=== PATIENT | female | born 1985 | race Caucasian/White ===

== ENCOUNTER 2021-04-08 09:11 | Outpatient (CLI) | payer OTHER, SELFPAY ==
--- NOTE | ~2021-04-08 | XR_ITS ---
EXAMINATION: XR chest 2V EXAM DATE: 04/08/2021 09:29 INDICATION: R05.9 - Cough, unspecified, productive TECHNIQUE: Frontal and lateral projections of the chest obtained and reviewed. Comparison is made to prior examination from 04/18/2013. FINDINGS: The lungs are clear. There are no pleural effusions. The cardiomediastinal silhouette is within normal limits. There is no pneumothorax suspected. The bones and soft tissues are unremarkab le. There is no significant interval change. IMPRESSION: No acute cardiopulmonary findings. Reviewed, dictated and finalized at location B. ETIC RESONANCE IMAGING COORDINATOR
== END 2021-04-08 09:12 | disposition home or self-care (01) ==
LOC: ANHIMG 09:14
PROVIDERS: PCP Family Medicine; Visit Provider Family Medicine
DX: R05.9 Cough, unspecified (principal)
CPT/HCPCS: 71046

== ENCOUNTER → 2022-04-27 10:41 | Outpatient (CLI) | payer OTHER, SELFPAY ==
--- NOTE | ~2022-04-27 | CT_ITS ---
EXAMINATION: CT brain wo con DATE: 04/27/2022 10:54 INDICATION: Skull anomaly. Left forehead lump. TECHNIQUE: Computed tomography (CT) of the head was performed without intravenous contrast. The mA wa s adjusted according to patient size. Iterative reconstruction technique was employed. The dose-lengt h product was 599.57 mGy-cm. COMPARISON: Head CT 08/17/2008 FINDINGS: There is no intracranial hemorrhage, acute infarction, or abnormal intracranial mass lesion . The ventricles are normal in size. The orbits are normal. There is mild mucosal thickening in the p aranasal sinuses. There is focal cortical thickening of the outer table of the frontal bone on the le ft, consistent with an osteoma. The mastoid air cells are normal. IMPRESSION: 1. 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 Reviewed, dictated and finalized at location A. OTIONS OFFICER IMPRESSION: 1. Focal cortical thickening of the left frontal skull, consistent with an oste balbina.
== END ==
PROVIDERS: PCP Family Medicine; Visit Provider Internal Medicine
DX: Q75.9 Congenital malformation of skull and face bones, unspecified (principal)
CPT/HCPCS: 70450

== ENCOUNTER 2023-08-11 19:58 | Emergency (ER) | payer BC, SELFPAY ==
--- NOTE | ~2023-08-11 | CT_ITS ---
EXAMINATION: CT brain wo con DATE: 08/12/2023 00:23 INDICATION: Migraine headache TECHNIQUE: Computed tomography (CT) of the head was performed without intravenous contrast. Sagittal and coronal reconstructions were performed. The mA was adjusted according to patient size. Iterative reconstruction technique was employed. The dose-length product was 605.33 mGy-cm. COMPARISON: head CT dated 04/27/2022 FINDINGS: No acute intracranial hemorrhage, acute infarction or abnormal extra axial fluid collection. Ventricl es are normal and symmetric. No mass/mass effect. The orbits, paranasal sinuses and mastoid air cells are normal. 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 Normal brain. Reviewed, dictated and finalized at location A. IMPRESSION: 1. Normal brain.
[2023-08-11 20:45] VITALS: BP 123/96; PULSE 94; RESP 16; TEMP 36.5; O2SAT 100
--- NOTE | 2023-08-12 00:41 | ED.HA ---
HPI - Headache General Chief Complaint: Headache Stated Complaint: migraine since 0600 Time Seen by Provider: 08/11/23 23:57 Source: patient Mode of arrival: ambulatory Limitations: no limitations History of Present Illness HPI Narrative: This is a 38-year-old female that presents to the emergency department for migraine headache. Reports history of chronic migraines. She sees a neurologist with [facility] for this. Reports her headache today was worse than usual which prompted her to be seen. She took her sumatriptan with little relief. Reports associated photophobia, nausea and vomiting. Reports a sharp pain to the right frontal region. Denies focal numbness or weakness. Related Data Home Medications Medication Instructions Recorded Confirmed amitriptyline 25 mg tablet 25 mg PO QHS 09/07/22 09/07/22 propranolol 160 mg capsule,24 160 mg PO DAILY 09/07/22 09/07/22 hr,extended release cyclobenzaprine 10 mg tablet 10 mg PO TID 10/11/22 Allergies Allergy/AdvReac Type Severity Reaction Status Date / Time Penicillins Allergy Mild Rash Verified 08/11/23 20:01 amoxicillin Allergy Unknown Rash Verified 08/11/23 20:01 erythromycin base Allergy Unknown Nausea and Verified 08/11/23 20:01 Vomiting Review of Systems Review of Systems: CONSTITUTIONAL: Denies fever EYES: Denies visual changes GASTROINTESTINAL: Reports nausea, vomiting NEUROLOGIC: Reports headache. Denies numbness, or weakness. All systems reviewed & are unremarkable except as noted in HPI and below PMFSH Past Medical History Medical History (Updated 08/12/23 @ 02:08 by Melinda Matos PA-C) Benign neoplasm of skull (~03/2022) Encounter for insertion of intrauterine contraceptive device (IUD) for non-contraception indication Encounter for screening examination for sexually transmitted disease Migraines Surgical History Surgical History H/O lateral meniscus repair of right knee History of gynecological procedure (10/17/21) junito iud insertion History of laparoscopy 12/12/12 hysteroscopy/dx lscope/chromopertubation/ablation endometriosis S/P ACL repair S/P left rotator cuff repair Family History Family History Mother Patient's mother is in good health Breast cancer Father Patient's father is in good health Grandparent Acute myocardial infarction Breast cancer paternal grandmother Social History Social History (Updated 10/11/22 @ 10:07 by Kati Lombardi [facility]) Social History: Smoking status: Never smoker Second hand tobacco smoke exposure: No Alcohol intake: current Alcohol use details: occasionally 1 x month Substance use: never Substance use type: does not use Lack of Transportation: No Lack of Food: Never True Current Housing: I Have Housing Concerned About Future Housing: No Difficulty Paying Gas/Electric Bills: No Difficulty Paying for Meds: No Currently Unemployed: No Education: Master's Degree or Higher Difficulty w/ Childcare or Family Care: No Living arrangements: other Additional living arrangements comments: Occupation/Education: occupation 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 HEAD: Normocephalic, atraumatic. EYES: PERRLA and EOMI. ENT: Nares clear, no rhinorrhea or epistaxis. Mucous membranes moist. Oropharynx without tonsillar hypertrophy exudate or other lesions. Bilateral TMs pearly trujillo non-bulging NECK: Supple. No adenopathy or masses. Normal ROM CHEST: Clear to auscultation. No respiratory distress. No wheezes rales or rhonchi HEART: Regular rate and rhythm. No murmur heard. Normal peripheral pulses.
[2023-08-12] MEDS: SODIUM CHLORIDE 0.9% IV 1,000 ML 999 ML IV CONT (00:42)
[2023-08-12] MEDS: diphenhydrAMINE HCl INJ 50 MG/ML VIAL 25 MG IV PUSH (00:43)
[2023-08-12] MEDS: KETOROLAC 15 MG/ML VIAL (*BKC) IV PUSH (00:46)
[2023-08-12] MEDS: METOCLOPRAMIDE HCL INJ 10 MG/2 ML VIAL IV PUSH (00:47)
[2023-08-12] MEDS: ACETAMINOPHEN 500 MG TABLET 1000 MG PO (00:51)
[2023-08-12 02:18] VITALS: BP 104/68; PULSE 61; RESP 18; O2SAT 99
== END 2023-08-12 02:18 | disposition home or self-care (01) ==
PROVIDERS: Emergency Provider Physician Assistant; PCP Family Medicine
DX: G43.909 Migraine, unspecified, not intractable, without status migrainosus (principal)
CPT/HCPCS: 70450; 96361; 96374; 96375; 99284; A9270; J1200; J1885; J2765; J7030

== ENCOUNTER 2024-06-11 11:19 | Outpatient (CLI) | payer BC, SELFPAY ==
--- NOTE | ~2024-06-11 | XR_ITS ---
Clinical Indication: Dyspnea PA and lateral views of the chest: Comparison: 04/08/2021 Findings: The lungs are clear, without evidence of focal consolidation or pleural effusion. Cardiome diastinal silhouette is within normal limits. Bones and soft tissues are unremarkable. Impression: Normal chest. Reviewed, dictated and finalized at location . Impression: Normal chest.
== END 2024-06-11 11:20 | disposition home or self-care (01) ==
LOC: MICIMG 11:21
PROVIDERS: PCP Family Medicine; Visit Provider Physician Assistant
DX: R06.00 Dyspnea, unspecified (principal)
CPT/HCPCS: 71046

== ENCOUNTER 2024-09-05 07:28 | Outpatient (CLI) | payer BC, SELFPAY ==
--- OUTSIDE RECORDS SUMMARY | 2024-09-05 07:31 | XMS_ITS | Encounter Summary ---
Author Organization [facility] Address [facility] [place] [address] Care Team Providers Care Licensed Weigher Name Role Phone Ramya Sims MD Primary Care Provider [phone] Ana Marques MD Unavailable [phone] Encounter Details Date Type Department Care Team ([facility] Contact Info) Description 08/13/2023 MyChart Message Enc [address], [address] [place] [address] Ana Marques MD [address] [place] [address] [phone] Migraine ER Visit Follow Up Social History Tobacco Use Types Packs/Day Years Used Date Smoking Tobacco: Never Passive Smoke Exposure: Never Smokeless Tobacco: Never Alcohol Use Standard Drinks/Week Comments Not Currently 0 (1 standard drink = 0.6 oz pur e alcohol) Comments No Sex and Gender Information Value Date Recorded Sex Assigned at Not on file Legal Sex Female 10:01 AM CDT Gender Identity Not on file Sexual Orientation Not on file documented as of this encounter Plan of Treatment Upcoming Encounters Date Type Department Care Team (Late Contact Info) Description 10/20/2024 8:00 AM CDT Office Visit [address], [address] [place] [address] Ana Marques MD [address] [place] [address] documented as of this encounter Visit Diagnoses Not on filedocumented in this encounter Additional Health Concerns Infection Onset Date Last Indicated Resolved Time Respiratory Rule Out 05/22/2024 05/22/2024 025 10:28 AM CDT Influenza - Seasonal 05/22/2024 05/22/2024 025 12:32 AM CDT documented as of this encounter Care Teams Licensed Weigher Relationship Specialty Start Date End Date Ramya Sims MD [address] [facility] [address] [place] [address] PCP - General FAMILY PRACTICE 11/16/20 Ana Marques MD [address] [place] [address] Consulting Physician NEUROLOGY 05/22/24 documented as of this encounter
--- OUTSIDE RECORDS SUMMARY | 2024-09-05 07:31 | XMS_ITS | Clinical Summary ---
Author Organization [facility] Address [facility] [place] [address] Care Team Providers Care Staff Air Tactical Officer Name Role Phone Ramya Sims MD Primary Care Provider [phone] Ana Marques MD Unavailable [phone] Allergies Active Allergy Reactions Criticality Noted Date Comments Amoxicillin Unknown 11/16/2020 Erythromycin Unknown 11/16/2020 Penicillins Unknown 11/16/2020 Medications methylPREDNISol one, TANYA, (MEDROL DOSEPAK) 4 MG tablet Take 1 tablet (4 mg total) by mouth 2 (two) times daily. 01/28/20 24 Active SUMAtriptan (IMITREX) 100 MG tabletIndicatio ns:Chronic migraine w/o aura w/o status migrainosus, not intractable Take 1 tablet (100 mg total) by mouth 2 (two) times daily as needed. 12 tablet 11 04/22/19 25 Active escitalopram (LEXAPRO) 5 MG tablet 5 mg orally daily 06/20/19 25 Active propranolol LA (INDERAL LA) 120 MG 24 hr capsuleIndicati ons:Chronic migraine w/o aura w/o status migrainosus, not intractable Take 1 capsule (120 mg total) by mouth nightly. 90 capsule 3 07/05/19 25 026 Active hydrOXYzine (ATARAX) 25 MG tablet Take 1 tablet (25 mg total) by mouth 3 (three) times daily as needed. FOR ANXIETY 08/02/19 25 Active propranolol LA (INDERAL LA) 160 MG 24 hr capsuleIndicati ons:Migraine without aura, not intractable, without status migrainosus Take 1 capsule (160 mg total) by mouth daily. 30 capsule 11 08/20/19 25 Active zonisamide (ZONEGRAN) 25 MG capsuleIndicati ons:Migraine without aura, not intractable, without status migrainosus Take 1 capsule (25 mg total) by mouth daily for 14 days, THEN 2 capsules (50 mg total) daily for 16 days. 46 capsule 08/20/19 25 025 Active acetaZOLAMIDE (DIAMOX) 250 MG tabletIndicatio ns:Chronic migraine w/o aura w/o status migrainosus, not intractable Take 2 tablets (500 mg total) by mouth 2 (two) times daily. 360 tablet 3 04/22/19 25 025 Discontinued Active Problems Problem Noted Date Diagnosed Date Chronic migraine without aura 01/03/2023 Coracoid impingement 02/12/2014 Arthralgia of shoulder 09/29/2013 Endometriosis of pelvic peritoneum 09/04/2013 Encounters Date Type Department Care Team Description 08/19/2024 1:00 PM CDT Office Visit [facility] - [address], [address] [place] [phone] Ana Marques MD Follow Up 08/19/2024 Travel 07/04/2024 8:20 AM CDT Office Visit [facility] - [address], [address] [place] [phone] Ana Marques MD Follow Up 07/04/2024 Travel 07/02/[address], [address] [place] [phone] Ana Marques MD Concerns from Last 3 Months Family History Medical History Relation Comments myocardial infarction Maternal Grandfather Cancer Mother Breast Cancer Relation Status Comments Maternal Grandfather Mother Social History Tobacco Use Types Packs/Day Years Used Date Smoking Tobacco: Never Passive Smoke Exposure: Never Smokeless Tobacco: Never Tobacco Cessation:Counseling Given: Yes Alcohol Use Standard Drinks/Week Comments Not Currently 0 (1 standard drink = 0.6 oz pur e alcohol) PHQ-2 Answer Date Recorded Patient Health Questionnaire-2 Score 0 08/19/2024 Comments No Sex and Gender Information Value Date Recorded Sex Assigned at Not on file Legal Sex Female 10:01 AM CDT Gender Identity Not on file Sexual Orientation Not on file Last Filed Vital Signs Vital Sign Reading Time Taken Comments Blood Pressure 134/84 08/19/2024 1:03 PM CDT Pulse 67 08/19/2024 1:03 PM CDT Temperature 36.9 C (98.4 F) 05/22/2024 1:58 PM CDT Respiratory Rate 16 05/22/2024 1:58 PM CDT Oxygen Saturation 98% 08/19/2024 1:03 PM CDT Inhaled Oxygen Concentration - - Weight 90.3 kg (199 lb) 08/19/2024 1:03 PM CDT Height 170.2 cm (5' 7) 05/22/2024 9:20 AM CDT Body Mass Index 31.17 05/22/2024 9:20 AM CDT Plan of Treatment Upcoming Encounters Date Type Department Care Team (Late st Contact Info) Description 10/20/2024 8:00 AM CDT Office Visit [facility] - [address], [address] [place] [address] Ana Marques MD [address] [place] [id number] Health Maintenance Due Date Last Done Comments Cervical Cancer Screening Pap Smear (Age 30 to 64) Every 3 Years 1985 Annual Physical 01/15/1988 Hepatitis C 2003 Cervical Cancer Screening Pap with HPV Testing (Age 30 to 64) Every 5 Years 2015 Cervical Cancer Screening with HPV 2015 COVID-19 Vaccine ( season) 2023 08/02/2020, 07/12/2020 DTaP, Tdap and Td Vaccines (8 - Td or Tdap) 06/21/2027 06/20/2017, 11/24/2015, 07/01/1999, Additional history exists Hepatitis B Vaccines Completed 11/15/2001, 06/11/2001, 05/01/2001 Meningococcal Vaccine Aged Out 08/24/2003 No karen stevo eligible based on patient's age to complete this topic HPV Vaccines Completed 05/20/2007, 12/27, 09/24/2006 PHQ-2 (Physician [place]) Completed 08/19/2024 Meningococcal B Vaccine Aged Out No l onger eligible based on patient's age to complete this topic Pneumococcal Vaccine: Pediatrics (0 to 5 Years) and At-Risk Patients (6 to 49 Years) Aged Out No longer eligible based on patient's age to complete this topic RSV Immunizations Under 20 Months Aged Out No longer eligible based on patient's age to complete this topic Insurance [facility] Care Teams Staff Air Tactical Officer Relationship Specialty Start Date End Date Ramya Sims MD [address] [facility] [address] [place] [address] PCP - General FAMILY PRACTICE 11/16/20 Ana Marques MD [address] [place] [address] Consulting Physician NEUROLOGY 05/22/24
--- NOTE | 2024-09-05 08:02 | ECHO_ITS ---
Patient Info Name: Ovidio Marie Age: 39 years : 1985 Gender: Female Ht: 67 in Wt: 195 lbs BSA: 2.07 m2 HR: 62 bpm BP: 129 / 92 mmHg Technical Quality: Excellent Exam Date: 09/05/2024 8:15 AM Patient Status: O Admit Date: 09/05/2024 Exam Type: CA echo doppler color flow Complete two-dimensional, color flow and Doppler transthoracic echocardiogram is performed. Automotive Design Layout Drafter: Kelsey Whittington Attending Provider: Raul Joaquin DO Summary 1. Complete two-dimensional, color flow and Doppler transthoracic echocardiogram is performed. 2. Left ventricular chamber dimension is normal. 3. Left ventricular systolic function is normal, estimated at 65-70. 4. The left ventricular diastolic function is grade I diastolic dysfunction. 5. E/e' 7 is not elevated. 6. There is mild mitral valve regurgitation. 7. There is mild tricuspid valve regurgitation. 8. No pulmonary hypertension, estimated pulmonary arterial systolic pressure is 30 mmHg. Left Ventricle E/e' 7 is not elevated. Left ventricular chamber dimension is normal. Left ventricular systolic function is normal, estimated at 65-70. The left ventricular diastolic function is grade I diastolic dysfunction. Right Ventricle Right ventricular chamber dimension is normal. Right ventricular systolic function is normal and with normal TAPSE 2.0 cm. Left Atria Left atrial chamber dimension is normal. Right Atria Right atrial chamber dimension is normal. Aortic Valve The aortic valve is trileaflet. There is no aortic valve stenosis. There is no aortic valve regurgitation. Pulmonic Valve There is no pulmonic regurgitation. Mitral Valve There is no mitral valve stenosis. There is mild mitral valve regurgitation. Tricuspid Valve There is mild tricuspid valve regurgitation. No pulmonary hypertension, estimated pulmonary arterial systolic pressure is 30 mmHg. Pericardium/Pleural There is no pericardial effusion. Inferior Vena Cava Normal inferior vena cava with >50% collapse upon inspiration consistent with normal right atrial pressure, 5 mmHg. Aorta The aortic root size at the sinus of Valsalva is normal. Left Ventricular Outflow Tract Name Value Normal LVOT 2D LVOT Diameter 1.8 cm LVOT Doppler LVOT Peak Velocity 125 cm/s LVOT Peak Gradient 6 mmHg LVOT Mean Gradient 3 mmHg LVOT VTI 30 cm LVOT Stroke Volume 79 ml LVOT CO 4.9 l/min LVOT CI 2.4 l/min/m2 Pulmonic Valve Name Value Normal RVOT Doppler RVOT Peak Velocity 67 cm/s RVOT Peak Gradient 2 mmHg PV Doppler PV Peak Velocity 77 cm/s PV Peak Gradient 2 mmHg Mitral Valve Name Value Normal MV Diastolic Function MV E Peak Velocity 83 cm/s MV A Peak Velocity 89 cm/s MV E/A 0.9 MV Decel Time (PW) 267 ms MV Annular TDI MV E/e' (Septal) 8.7 MV E/e' (Lateral) 6.0 MV E/e' (Average) 7.4 Tricuspid Valve Name Value Normal TV Regurgitation Doppler TR Peak Velocity 252 cm/s TR Peak Gradient 22 mmHg Estimated PAP/RSVP RA Pressure 5 mmHg <=5 PA Systolic Pressure 30 mmHg <36 RV Systolic Pressure 30 mmHg <36 Aortic Valve Name Value Normal AV Doppler AV Peak Velocity 161 cm/s AV Peak Gradient 10 mmHg AV Area (Cont Eq Andrew) 2.0 cm2 AV DI (Andrew) 0.77 AV Regurgitation 2D LVOT Area 2.6 cm2 Ventricles Name Value Normal LV Dimensions 2D/MM IVS Diastolic Thickness (2D) 1.0 cm 0.6-1.0 LVID Diastole (2D) 4.8 cm 3.8-5.2 LVIW Diastolic Thickness (2D) 0.9 cm 0.6-0.9 LVID Systole (2D) 2.6 cm 2.2-3.5 LVOT Diameter 1.8 cm LV Mass (2D Cubed) 154.14 g 67.00-162.00 LV Mass Index (2D Cubed) 74 g/m2 43-95 Relative Wall Thickness (2D) 0.37 <=0.42 LV Fractional Shortening/Ejection Fraction 2D/MM LV Fractional Shortening (2D) 45 % 27-45 LV EF (2D Teichholz) 76 % LV EF (BP MOD) 61 % 54-74 RV Dimensions 2D/MM TAPSE 2.0 cm >=1.7 Atria Name Value Normal LA Dimensions LA Volume (4C A-L) 61 ml LA Volume (BP A-L) 56 ml RA Dimensions RA Systolic Major Benoit Length (4C) 5.9 cm 2.2-2.8 RA Area (4C) 17.9 cm2 <=18.0 EchoPAC Name Value Normal AutoEF LVCO_BiP_Q (Mgpg8OBW) 3.0 l/min LVEF_BiP_Q (Dakt2YPA) 63 % LVSV_BiP_Q (Jorx6DCD) 49 ml LVVED_BiP_Q (Ijwk1IUN) 77 ml LVVES_BiP_Q (Xgrj8DWU) 28 ml HR_4Ch_Q (Rzzt8DIV) 61 bpm LVCO_4Ch_Q (Ouvl1XON) 3.1 l/min LVEF_4Ch_Q (Lykn3MAO) 66 % LVLd_4Ch_Q (Ghmz1IKB) 7.6 cm LVLs_4Ch_Q (Tpxk7KFK) 6.1 cm LVSV_4Ch_Q (Gzkk6HHG) 51 ml LVVED_4Ch_Q (Gnhr0JVA) 78 ml LVVES_4Ch_Q (Kbnj1UMM) 26 ml HR_2Ch_Q (Uqlf4YFQ) 63 bpm LVCO_2Ch_Q (Aito3ABO) 3.0 l/min LVEF_2Ch_Q (Bhdx2DBT) 61 % LVLd_2Ch_Q (Nlkq9QKC) 8.0 cm LVLs_2Ch_Q (Suzs2KYR) 6.6 cm LVSV_2Ch_Q (Ekkn8LTI) 47 ml LVVED_2Ch_Q (Fllr1YEV) 77 ml LVVES_2Ch_Q (Qdfx5YWD) 30 ml Report Signatures
== END 2024-09-05 07:29 | disposition home or self-care (01) ==
PROVIDERS: PCP Family Medicine; Visit Provider Internal Medicine Cardiovascular Disease
DX: R06.09 Other forms of dyspnea (principal); I34.0 Nonrheumatic mitral (valve) insufficiency; I36.1 Nonrheumatic tricuspid (valve) insufficiency
CPT/HCPCS: 93306